=== PATIENT | male | born 1945 | race Caucasian/White ===

== ENCOUNTER → 2017-03-12 | Outpatient (CLI) | payer MEDICARE ==
[~2017-03-12] MED LIST: APIX5TAB PO; CELE200C PO; CHOL200012 PO; FISH OIL OMEGA1 EACH PO; FURO20TA3 PO; GLUC1TAB55 PO; LEVO125T5 PO; LEVO75TA5 PO; LISI-167 PO; METO25TA35 PO; MULT-717 PO; OMEP-110 PO; VIT1TABL32 PO
[2017-03-12 10:11] LABS: BLOOD UREA NITROGEN 17 mg/dL (7-18)
[2017-03-12 10:15] LABS: ASPARTATE AMINO TRANSFERASE 24 U/L (15-37)
== END | disposition home or self-care (01) ==
LOC: STAR 08:42
PROVIDERS: ATTEND Surgery
DX: Z01.818 Encounter for other preprocedural examination (principal); J98.4 Other disorders of lung; Q25.46 Tortuous aortic arch; Z86.711 Personal history of pulmonary embolism
CPT/HCPCS: 36415; 71020; 80053; 85025; 85610; 93005

== ENCOUNTER 2017-03-16 07:11 | Observation (INO) | payer MEDICARE ==
[~2017-03-16] VITALS: Ht 180.3 cm; Wt 131.7 kg
[~2017-03-16 07:11] MED LIST changes: +BUPIVACAINE/PF 0.5% ONE; +EPINEPHRINE 1 MG/ML, 1ML ONE
[2017-03-16] MEDS ORDERED: MIDAZOLAM 1 MG/ML, 2ML ONE (08:40)
[2017-03-16] MEDS ORDERED: FENTANYL PF 250 MCG/5ML ONE (08:40)
[2017-03-16] MEDS: LACTATED RINGERS 1,000 ML IV SCH ×3 (08:42→21:06)
[2017-03-16 08:43] VITALS: BP 125/80
[2017-03-16] MEDS ORDERED: BUPIVACAINE/PF 0.5% ONE (09:09)
[2017-03-16] MEDS ORDERED: EPINEPHRINE 1 MG/ML, 1ML ONE (09:09)
[2017-03-16] MEDS ORDERED: ACETAMINOPHEN 325 MG TABLET PO PRN (10:00)
[2017-03-16] MEDS ORDERED: LABETALOL 5MG/ML, 20ML IV PRN (10:00)
[2017-03-16] MEDS ORDERED: ONDANSETRON 2MG/ML, 2ML IVPush PRN (10:00)
[2017-03-16] MEDS ORDERED: HYDROmorphone 1 MG/ML, 1ML IV PRN (10:00)
[2017-03-16] MEDS ORDERED: MEPERIDINE/PF 25MG/0.5ML IVPush PRN (10:00)
[2017-03-16] MEDS ORDERED: hydrALAzine 20 MG/ML, 1ML IV PRN (10:00)
[2017-03-16] MEDS ORDERED: PROMETHAZINE 25 MG/ML, 1ML IV PRN (10:00)
[2017-03-16] MEDS ORDERED: METOCLOPRAMIDE 5 MG/ML, 2ML IV PRN (10:00)
[2017-03-16] MEDS ORDERED: OXYcodone 5 MG/5 ML ORAL.SOL UDC PO PRN (10:00)
[2017-03-16] MEDS ORDERED: PHENYLEPHRINE 10 MG/ML ONE (10:45)
[2017-03-16] MEDS ORDERED: NEOSTIGMINE 1 MG/ML, 10ML ONE (10:45)
[2017-03-16] MEDS ORDERED: PROPOFOL 10 MG/ML, 20ML ONE (10:45)
[2017-03-16] MEDS ORDERED: KETOROLAC 30 MG/1 ML ONE ×2 (10:45→10:46)
[2017-03-16] MEDS ORDERED: GLYCOPYRROLATE 0.2MG/1ML ONE (10:45)
[2017-03-16] MEDS ORDERED: CEFOTETAN 2 GM ONE (10:45)
[2017-03-16] MEDS ORDERED: FENTANYL PF 100 MCG/2ML ONE (10:46)
[2017-03-16] MEDS ORDERED: ACETAMINOPHEN 650 MG/20.3 ML UDC ONE (10:46)
[2017-03-16] MEDS ORDERED: OXYcodone 5 MG/5 ML ORAL.SOL UDC ONE (10:47)
[2017-03-16] MEDS: FENTANYL PF 100 MCG/2ML IV PRN ×2 (10:51→11:01)
[2017-03-16] MEDS ORDERED: KETOROLAC 30 MG/1 ML IVPush ONE (11:00)
[2017-03-16] MEDS ORDERED: HYDROmorphone 1 MG/ML, 1ML ONE (11:02)
[2017-03-16] MEDS ORDERED: ONDANSETRON 2MG/ML, 2ML ONE (14:20)
[2017-03-16] MEDS: ONDANSETRON 2MG/ML, 2ML IVPush PRN ×2 (14:22→21:00)
[2017-03-16] MEDS ORDERED: HYDROcodone/APAP 7.5-325MG/15ML UDC PO PRN (15:00)
[2017-03-16] MEDS ORDERED: morphine SULFATE 10 MG/ML, 1ML IVPush PRN (19:00)
[2017-03-16] MEDS ORDERED: OXYcodone/APAP 5/325MG TABLET PO PRN (19:00)
[2017-03-16] MEDS ORDERED: KETOROLAC 30 MG/1 ML IVPush PRN (19:00)
[2017-03-17 00:09] VITALS: BP 118/70
[2017-03-17 04:27] VITALS: BP 115/70
[2017-03-17] MEDS ORDERED: LEVOTHYROXINE 75 MCG TABLET PO SCH (06:00)
[2017-03-17] MEDS: LACTATED RINGERS 1,000 ML IV SCH ×2 (06:10→16:37)
[2017-03-17 06:50] VITALS: BP 124/74
[2017-03-17] MEDS: [UNRECOGNIZED DRUG - REMARK] MC SCH ×2 (08:00→16:00)
[2017-03-17 08:15] VITALS: BP 128/71
[2017-03-17] MEDS ORDERED: APIXABAN 5 MG TABLET PO SCH (09:00)
[2017-03-17] MEDS ORDERED: OSTEO BI-FLEX HOMEMEDPO SCH (09:00)
[2017-03-17] MEDS ORDERED: MULTIVITAMIN 1 TABLET PO SCH (09:00)
[2017-03-17] MEDS ORDERED: FUROSEMIDE 20 MG TABLET PO SCH (09:00)
[2017-03-17] MEDS ORDERED: OMEGA-3/FISH OIL CAPSULE PO SCH (09:00)
[2017-03-17] MEDS ORDERED: METOPROLOL TARTRATE 50 MG TABLET PO SCH (09:00)
[2017-03-17] MEDS ORDERED: LISINOPRIL 20 MG TABLET PO SCH (09:00)
[2017-03-17 13:28] VITALS: BP 118/70
== END 2017-03-17 18:30 | disposition home or self-care (01) ==
LOC: OUT 07:11 → 4NOR 18:54 → INTOOBSV 20:44 → OUT 20:44 → 4NOR 03-17 18:21
PROVIDERS: ADMIT Surgery; ATTEND Surgery
DX: K80.20 Calculus of gallbladder without cholecystitis without obstruction (principal); E03.9 Hypothyroidism, unspecified; K21.9 Gastro-esophageal reflux disease without esophagitis; I10 Essential (primary) hypertension; K76.0 Fatty (change of) liver, not elsewhere classified; F17.210 Nicotine dependence, cigarettes, uncomplicated
CPT/HCPCS: 47562; 88304; G0378; J0171; J1170; J1885; J2250; J2370; J2405; J2704; J2710; J3010; J3490; J7120; 96374; S0074

== ENCOUNTER 2018-11-05 10:07 | Emergency (ER) | payer MEDICARE ==
[~2018-11-05] VITALS: Ht 177.8 cm; Wt 127.0 kg
[~2018-11-05 10:07] MED LIST changes: -BUPIVACAINE/PF 0.5% ONE; -CHOL200012 PO; +CHOL200074 PO; -EPINEPHRINE 1 MG/ML, 1ML ONE
--- NOTE | 2018-11-05 11:00 | NUR ---
PT PRESENTS TO ED UNABLE TO URINATE SINCE YESTERDAY AFTER HEMMROID SURGERY, NO PAIN BUT FEELS BLADDER DISTENTION. NAD, VSS ON RA. RESTING IN GURNEY WITH CALL LIGHT WITHIN REACH, WCTM
--- NOTE | 2018-11-05 11:59 | NUR ---
CARTER INSERTED WITH NO RESISTANCE, PT INSTRUCTED ON CARE AND DRAINAGE.
[2018-11-05 12:00] VITALS: BP 122/61
--- NOTE | 2018-11-05 12:04 | NUR ---
800CC EMPTIED FROM [facility]
== END 2018-11-05 12:21 | disposition home or self-care (01) ==
LOC: ED 12:15
DX: R33.9 Retention of urine, unspecified (principal); Z90.79 Acquired absence of other genital organ(s); Z86.718 Personal history of other venous thrombosis and embolism
CPT/HCPCS: 51702; 99284

== ENCOUNTER 2019-08-12 10:28 | Outpatient (CLI) | payer MEDICARE | END 2019-08-12 23:59 | disposition home or self-care (01) | LOC: CVU 10:28 | PROVIDERS: ATTEND Internal Medicine Cardiovascular Disease | DX: Z02.9 Encounter for administrative examinations, unspecified (principal) ==

== ENCOUNTER 2019-08-12 11:03 | Emergency (ER) | payer MEDICARE ==
[~2019-08-12] VITALS: Ht 177.8 cm; Wt 125.0 kg
--- NOTE | 2019-08-12 12:00 | NUR ---
THIS IS A 74 YO M SENT FROM [facility] FOR LOW BP AND HIGH HR. PATIENT C/O OCCASIONAL DIZZINESS. RESPIRATIONS ARE EVEN AND UNLABORED. PATIENT IS IN NO ACUTE DISTRESS. PATIENT IS RESTING ON GURNEY CONVERSING WITH STAFF. VS STABLE. CALL LIGHT IN REACH. WILL CONTINUE TO MONITOR.
--- NOTE | 2019-08-12 12:26 | NUR ---
RADIOLOGY IN ROOM FOR ECHOCARDIOGRAM.
[2019-08-12] MEDS ORDERED: SODIUM CHLORIDE FLUSH 10ML SYR IVF ONE (12:30)
[2019-08-12] MEDS ORDERED: SODIUM CHLORIDE 0.9% 1,000ML IVBOLUS ONE (12:30)
[2019-08-12 12:39] LABS: BASOPHILS # (AUTO) 0.03 x10^3/uL (0-0.1); BASOPHILS % (AUTO) 0 % (0-1); EOSINOPHILS # (AUTO) 0.18 x10^3/uL (0-0.4); EOSINOPHILS % (AUTO) 2 % (1-7); LYMPHOCYTES # (AUTO) 1.19 x10^3/uL (1-3.4); LYMPHOCYTES % (AUTO) 13 % (22-44); MD NO; MEAN CORPUSCULAR HEMOGLOBIN 32.3 pg (27.5-34.5); MEAN CORPUSCULAR HGB CONC 33.2 g/dL (33.2-36.2); MEAN CORPUSCULAR VOLUME 97.2 fL (81-97); MEAN PLATELET VOLUME 9.7 fL (7.4-10.4); MONOCYTES # (AUTO) 0.99 x10^3/uL (0.2-0.8); MONOCYTES % (AUTO) 11 % (2-9); NEUTROPHILS # (AUTO) 7.11 x10^3/uL (1.8-6.8); NEUTROPHILS % (AUTO) 75 % (42-75); PLATELET COUNT 156 x10^3/uL (130-400); RED BLOOD COUNT 4.82 x10^6/uL (4.38-5.82); RED CELL DISTRIBUTION WIDTH 16.2 % (9.4-14.8)
[2019-08-12 12:42] LABS: ALBUMIN 3.1 g/dL (3.4-5.0); ANION GAP 4 mmol/L (5-15); CALCIUM 8.5 mg/dL (8.5-10.1); CHLORIDE 108 mmol/L (98-107); CREATININE 1.09 mg/dL (0.7-1.3)
[2019-08-12 12:46] LABS: TROPONIN I < 0.015 ng/mL (0.000-0.045)
--- NOTE | 2019-08-12 13:11 | NUR ---
TASK RN: RADIOLOGY BEDSIDE.
--- NOTE | 2019-08-12 13:27 | NUR ---
TASK RN: PIV ESTABLISHED. PIV INFUSING AT THIS TIME. NADN. NO OTHER REQUESTS AT THIS TIME.
--- NOTE | 2019-08-12 13:35 | NUR ---
TASK RN: BEDSIDE REPORT TO [facility].
[2019-08-12 13:51] VITALS: BP 128/69
--- NOTE | 2019-08-12 13:52 | NUR ---
TASK RN: PT RESTING ON GURNEY. NADN. ANDERSENS. PT AWARE OF POC FOR IVF THEN DC AND IS AGREEABLE.
--- NOTE | 2019-08-12 14:48 | NUR ---
Patient given discharge instructions and they have confirmed that they understand the instructions. Patient ambulatory with steady gait.
== END 2019-08-12 14:50 | disposition home or self-care (01) ==
LOC: ED 14:45
DX: I95.9 Hypotension, unspecified (principal); Z87.891 Personal history of nicotine dependence; Z86.718 Personal history of other venous thrombosis and embolism
CPT/HCPCS: 36415; 71045; 80048; 82040; 84484; 85025; 93005; 93306; 96360; 99284; J7030

== ENCOUNTER → 2019-10-17 | Outpatient (CLI) | payer MEDICARE ==
[~2019-10-17] MED LIST changes: +REGADENOSON 0.4 MG/5 ML SYRINGE ONE
== END | disposition home or self-care (01) ==
LOC: CVU 10:35 → MERGE 10:35
PROVIDERS: ATTEND Internal Medicine Cardiovascular Disease
DX: I70.0 Atherosclerosis of aorta (principal); R09.89 Other specified symptoms and signs involving the circulatory and respiratory systems
CPT/HCPCS: 78452; 93017; 93880; A9502; J2785

== ENCOUNTER 2020-05-09 16:57 | Emergency (ER) | payer MEDICARE ==
[~2020-05-09] VITALS: Ht 177.8 cm; Wt 121.0 kg
[~2020-05-09 16:57] MED LIST changes: -REGADENOSON 0.4 MG/5 ML SYRINGE ONE
[2020-05-09 18:14] LABS: INTERNATIONAL NORMALIZED RATIO 2.81 (0.93-1.1); PROTHROMBIN TIME 29.2 Seconds (9.6-11.5)
[2020-05-09 18:20] LABS: ALANINE AMINOTRANSFERASE 32 U/L (12-78); ALBUMIN 3.6 g/dL (3.4-5.0); ANION GAP 4 mmol/L (5-15); CALCIUM 8.6 mg/dL (8.5-10.1); CHLORIDE 108 mmol/L (98-107); CREATININE 1.32 mg/dL (0.7-1.3)
[2020-05-09 18:22] LABS: ALKALINE PHOSPHATASE 75 U/L (45-117); BILIRUBIN,TOTAL 0.8 mg/dL (0.2-1.0); TOTAL PROTEIN 7.1 g/dL (6.4-8.2)
[2020-05-09 18:25] LABS: BASOPHILS # (AUTO) 0.02 x10^3/uL (0-0.1); BASOPHILS % (AUTO) 0 % (0-1); EOSINOPHILS # (AUTO) 0.23 x10^3/uL (0-0.4); EOSINOPHILS % (AUTO) 3 % (1-7); LYMPHOCYTES # (AUTO) 1.49 x10^3/uL (1-3.4); LYMPHOCYTES % (AUTO) 19 % (22-44); MD NO; MEAN CORPUSCULAR HEMOGLOBIN 32.1 pg (27.5-34.5); MEAN CORPUSCULAR HGB CONC 32.5 g/dL (33.2-36.2); MEAN PLATELET VOLUME 8.9 fL (7.4-10.4); MONOCYTES # (AUTO) 1.07 x10^3/uL (0.2-0.8); MONOCYTES % (AUTO) 13 % (2-9); NEUTROPHILS # (AUTO) 5.19 x10^3/uL (1.8-6.8); NEUTROPHILS % (AUTO) 65 % (42-75); PLATELET COUNT 171 x10^3/uL (130-400); RED BLOOD COUNT 4.63 x10^6/uL (4.38-5.82); RED CELL DISTRIBUTION WIDTH 15.8 % (9.4-14.8)
--- NOTE | 2020-05-09 19:05 | NUR ---
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
--- NOTE | 2020-05-09 19:14 | NUR ---
First contact with patient: patient presents to ER c/o swelling and discoloration to left lower extremity since Thursday. Patient has a hx of neuropathy therefore he has some numbness in the area. Slight drainage noted. Patient is in NAD. Respirations even and unlabored.
[2020-05-09 19:17] VITALS: BP 122/65
[2020-05-09] MEDS ORDERED: LIDOCAINE-MPF 1%, 5ML ONE (19:49)
[2020-05-09] MEDS ORDERED: LIDOCAINE-MPF 1%, 5ML INFIL ONE (20:00)
== END 2020-05-09 21:01 | disposition home or self-care (01) ==
LOC: ED 21:00
DX: L03.116 Cellulitis of left lower limb (principal); Z87.891 Personal history of nicotine dependence; Z86.718 Personal history of other venous thrombosis and embolism
CPT/HCPCS: 10060; 36415; 80053; 85025; 85610; 87070; 87205; 99284

== ENCOUNTER → 2020-07-16 | Outpatient (CLI) | payer MEDICARE | END | disposition home or self-care (01) | LOC: CVU 12:34 | PROVIDERS: ATTEND Internal Medicine Cardiovascular Disease | DX: I35.1 Nonrheumatic aortic (valve) insufficiency (principal); I70.0 Atherosclerosis of aorta | CPT/HCPCS: 93306 ==

== ENCOUNTER 2021-05-06 12:53 | Outpatient (CLI) | payer MEDICARE | END 2021-05-06 23:59 | disposition home or self-care (01) | LOC: CVU 12:53 | PROVIDERS: ATTEND Internal Medicine Cardiovascular Disease | DX: I08.0 Rheumatic disorders of both mitral and aortic valves (principal); I71.2 Thoracic aortic aneurysm, without rupture | CPT/HCPCS: 93306 ==